=== PATIENT | male | born 1995 ===

== ENCOUNTER 2020-02-08 20:44 | Emergency (ER) | payer SELFPAY ==
[2020-02-08 21:24] VITALS: BP 119/63
--- NOTE | 2020-02-08 22:17 | XRay Report ---
RIGHT HAND 4 VIEW(S) INDICATION / CLINICAL INFORMATION: injury to r hand COMPARISON: None available. FINDINGS: BONES / JOINT(S): No acute fracture or subluxation. No significant arthritis. SOFT TISSUES: No significant abnormality. ADDITIONAL FINDINGS: None. Signer Name: Kevin Rocha MD Signed: 02/08/2020 10:12 PM Workstation Name: [id number]
--- NOTE | 2020-02-08 22:33 | Emergency Department Report ---
ED General Adult HPI - General Chief complaint: Extremity Injury, Upper Stated complaint: RIGHT HAND PAIN Time Seen by Provider: 02/08/20 22:18 Source: patient Mode of arrival: Ambulatory Limitations: No Limitations - History of Present Illness Initial comments: 24-year-old male presenting with chief complaint of right hand pain after punching a wall just prior to arrival. Reports pain is moderate to severe, worse with movement better with immobilization. No other injuries. Onset sudden. - Related Data Previous Rx's Medication Instructions Recorded Last Taken Type Ibuprofen [Motrin 600 MG tab] 600 mg PO Q8H PRN #15 tablet 02/08/20 Unknown Rx Allergies Allergy/AdvReac Type Severity Reaction Status Date / Time No Known Allergies Allergy Unverified 11/02/15 15:40 ED Review of Systems ROS: Stated complaint: RIGHT HAND PAIN Other details as noted in HPI Comment: All other systems reviewed and negative Musculoskeletal: as per HPI ED Past Medical Hx - Social History Smoking Status: Never Smoker Substance Use Type: Marijuana - Medications Home Medications: Home Medications Medication Instructions Recorded Confirmed Last Taken Type Ibuprofen [Motrin 600 MG tab] 600 mg PO Q8H PRN #15 tablet 02/08/20 Unknown Rx ED Physical Exam - General Limitations: No Limitations General appearance: alert, in no apparent distress - Head Head exam: Present: atraumatic, normocephalic - Eye Eye exam: Present: normal appearance - ENT ENT exam: Present: mucous membranes moist - Neck Neck exam: Present: normal inspection - Extremities Exam Extremities exam: Present: other (Right hand has multiple abrasions, no actual lacerations, mild swelling especially over the fourth and fifth metacarpal, intact pulses and sensation, normal cap refill, wrist and forearm normal.) - Back Exam Back exam: Present: normal inspection - Neurological Exam Neurological exam: Present: alert, oriented X3 - Psychiatric Psychiatric exam: Present: normal affect, normal mood - Skin Skin exam: Present: warm, dry, intact, normal color. Absent: rash ED Course Vital Signs 02/08/20 21:04 Temperature 98.1 F Pulse Rate 93 H Respiratory 20 Rate Blood Pressure 119/63 O2 Sat by Pulse 99 Oximetry ED Medical Decision Making - Radiology Data Radiology results: report reviewed, image reviewed No obvious fracture - Medical Decision Making Patient presents after punching a wall with right hand pain. Abrasions and swelling noted. X-ray obtained does not show any evidence of fracture. Will place in splint and refer to orthopedics for follow-up. - Differential Diagnosis Sprain, fracture, dislocation Critical care attestation.: If time is entered above; I have spent that time in minutes in the direct care of this critically ill patient, excluding procedure time. ED Disposition Clinical Impression: Right hand pain Disposition: DC-01 TO HOME OR SELFCARE Is pt being admited?: No Condition: Good Instructions: Hand Pain Prescriptions: Ibuprofen [Motrin 600 MG tab] 600 mg PO Q8H PRN #15 tablet PRN Reason: Pain Referrals: SHAHRAM CABRAL MD [Staff Physician] - 3-5 Days Time of Disposition: 22:32
== END 2020-02-08 23:40 | disposition home or self-care (01) ==
LOC: ED 20:44
DX: M25.541 Pain in joints of right hand (principal); F12.90 Cannabis use, unspecified, uncomplicated; Z79.899 Other long term (current) drug therapy